=== PATIENT | female | born 1965 | race Caucasian/White ===

== ENCOUNTER 2021-04-25 20:35 | Inpatient (IN) | payer OTHER ==
[~2021-04-25] VITALS: Ht 175.3 cm; Wt 102.1 kg
[2021-04-25] MEDS ORDERED: NITROGLYCERIN OINT 1GM/INCH UDPKT TD ONE (21:15)
[2021-04-26 00:36] LABS: BASOPHILS % 0.9 % (0.0-2.0); EOSINOPHILS % 1.3 % (0.0-5.0); HEMATOCRIT. 40.1 % (36.0-48.0); HEMOGLOBIN. 12.7 g/dL (12.0-16.0); LYMPHOCYTES % 21.8 % (20.0-50.0); MEAN CORPUSCULAR HEMOGLOBIN 26.7 pg (28.0-32.0); MEAN PLATELET VOLUME 8.6 fl (7.4-10.4); MONOCYTES % 7.3 % (2.0-8.0); NEUTROPHILS % 68.7 % (40.0-76.0); PLATELET 354 x1000/uL (130-400); RED BLOOD CELL COUNT 4.77 mill/uL (4.2-5.4); RED CELL DISTRIBUTION WIDTH 14.9 % (11.6-14.6)
[2021-04-26 01:34] LABS: CHLORIDE 108 mEq/L (98-107)
[2021-04-26] MEDS ORDERED: NITROGLYCERIN OINT 1GM/INCH UDPKT TD ONE (02:30)
[2021-04-26] MEDS ORDERED: DEXAMETHASONE 4MG/ML 1ML VIAL IV ONE (02:30)
[2021-04-26] MEDS ORDERED: ENOXAPARIN 80MG/0.8ML SYR SUBCUT ONE (02:45)
[2021-04-26] MEDS ORDERED: FUROSEMIDE 20MG/2ML VIAL IVP ONE (03:45)
[2021-04-26] MEDS ORDERED: IOHEXOL-350 100 ML BOTTLE ONE (03:51)
[2021-04-26 03:56] LABS: *AMPHETAMINES SCREEN URINE PRESUMTIVE POSITIVE (NEGATIVE); *BARBITURATES SCREEN URINE NEGATIVE (NEGATIVE); *BENZODIAZEPINES SCREEN URINE NEGATIVE (NEGATIVE); *COCAINE SCREEN URINE PRESUMTIVE POSITIVE (NEGATIVE); CANNABINOID URINE SCREEN NEGATIVE (NEGATIVE); METHADONE URINE SCREEN NEGATIVE (NEGATIVE); OPIATES URINE SCREEN NEGATIVE (NEGATIVE); PHENCYCLIDINE URINE SCREEN NEGATIVE (NEGATIVE)
[2021-04-26] MEDS: ACETAMINOPHEN 650MG/20.3ML UDC PO PRN ×2 (13:42→13:47)
[2021-04-26] MEDS ORDERED: ACETAMINOPHEN 325MG TABLET PO PRN (14:00)
[2021-04-26 16:00] VITALS: BP 102/73
[2021-04-26] MEDS ORDERED: FUROSEMIDE 40MG/4ML VIAL IVP NR (18:00)
[2021-04-26] MEDS: ENOXAPARIN 40MG/0.4ML SYR SUBCUT SCH (18:37)
[2021-04-26] MEDS ORDERED: INFLUENZA VACCINE 05/PF 0.5 ML SYRINGE IM ONE (19:00)
[2021-04-26] MEDS ORDERED: TRAMADOL 50MG TABLET PO PRN (19:45)
[2021-04-26 20:00] VITALS: BP 130/96
[2021-04-26] MEDS ORDERED: NALOXONE HCL 0.4MG/ML VIAL IV PRN (20:00)
[2021-04-26] MEDS: KETOROLAC 30MG/ML VIAL IV PRN (22:37)
[2021-04-27] VITALS: BP_SYST 100; BP_SYST 130; BP_DIAS 59; BP_DIAS 96
[2021-04-27 04:00] VITALS: BP 112/81
[2021-04-27] MEDS: FUROSEMIDE 40MG/4ML VIAL IVP SCH ×2 (06:49→16:45)
[2021-04-27 08:00] VITALS: BP 119/85
[2021-04-27 12:00] VITALS: BP 118/76
[2021-04-27 16:00] VITALS: BP 117/79
[2021-04-27] MEDS: ENOXAPARIN 40MG/0.4ML SYR SUBCUT SCH (17:02)
[2021-04-27 20:00] VITALS: BP 100/58
[2021-04-28] VITALS: BP 110/78
[2021-04-28 04:00] VITALS: BP 114/73
[2021-04-28] MEDS: FUROSEMIDE 40MG/4ML VIAL IVP SCH ×2 (06:33→17:15)
[2021-04-28 08:00] VITALS: BP 100/66
[2021-04-28 10:01] LABS: CHLORIDE 102 mEq/L (98-107)
[2021-04-28] MEDS ORDERED: POTASSIUM CHLORIDE 20MEQ TABLET SR PO SCH (10:45)
[2021-04-28 12:00] VITALS: BP 100/67
[2021-04-28] MEDS ORDERED: DEXT 5% WATER + KCL 40MEQ/L 1,000 ML IV ONE (12:00)
[2021-04-28] MEDS ORDERED: CARV6.2548 MT (12:02)
[2021-04-28] MEDS ORDERED: LOSA25TA26 MT (12:02)
[2021-04-28] MEDS ORDERED: POTA20TA82 MT (12:02)
[2021-04-28] MEDS ORDERED: FURO-151 MT (12:02)
[2021-04-28] MEDS: POTASSIUM CHLORIDE 20MEQ TABLET SR PO SCH (13:45)
[2021-04-28] MEDS: KCL 20MEQ/100ML PREMIX 100 ML IV SCH (15:28)
[2021-04-28 16:00] VITALS: BP 100/55
[2021-04-28] MEDS: ENOXAPARIN 40MG/0.4ML SYR SUBCUT SCH (18:38)
[2021-04-28 20:00] VITALS: BP 103/73
[2021-04-28] MEDS: CARVEDILOL 3.125 MG TABLET PO SCH (20:30)
[2021-04-28] MEDS: KETOROLAC 30MG/ML VIAL IV PRN (21:40)
[2021-04-28] MEDS ORDERED: MAGNESIUM 2 G PREMIX 50 ML IV NR (23:00)
[2021-04-29] VITALS: BP 111/81
[2021-04-29 04:00] VITALS: BP 117/92
[2021-04-29] MEDS: FUROSEMIDE 40MG/4ML VIAL IVP SCH (06:03)
[2021-04-29] MEDS: KCL 20MEQ/100ML PREMIX 100 ML IV SCH (06:03)
[2021-04-29] MEDS: ONDANSETRON HCL 4MG/2ML INJ IV PRN ×2 (06:03→11:10)
[2021-04-29 08:00] VITALS: BP 123/92
[2021-04-29] MEDS: CARVEDILOL 3.125 MG TABLET PO SCH (09:00)
[2021-04-29] MEDS: POTASSIUM CHLORIDE 20MEQ TABLET SR PO SCH (09:00)
[2021-04-29 12:00] VITALS: BP 110/78
[2021-04-29] MEDS ORDERED: POTASSIUM CHLORIDE 20MEQ TABLET SR PO NR (14:30)
[2021-04-29] MEDS: KETOROLAC 30MG/ML VIAL IV PRN (14:55)
[2021-04-29 15:12] VITALS: BP 110/78
== END 2021-04-29 16:40 | disposition home or self-care (01) | DRG 291 ==
LOC: ER 20:35 → 8WST 04-26 02:33 → EDBEDREQ 04-26 02:49 → EDBEDREQTM 04-26 02:49
PROVIDERS: ADMIT Internal Medicine; ATTEND Internal Medicine
DX: I50.23 Acute on chronic systolic (congestive) heart failure (principal); R65.11 Systemic inflammatory response syndrome (SIRS) of non-infectious origin with acute organ dysfunction; E44.0 Moderate protein-calorie malnutrition; I42.9 Cardiomyopathy, unspecified; F15.90 Other stimulant use, unspecified, uncomplicated; F14.10 Cocaine abuse, uncomplicated; Z20.822 Contact with and (suspected) exposure to COVID-19; I08.1 Rheumatic disorders of both mitral and tricuspid valves; E87.8 Other disorders of electrolyte and fluid balance, not elsewhere classified; Z82.49 Family history of ischemic heart disease and other diseases of the circulatory system; Z87.442 Personal history of urinary calculi; Z68.33 Body mass index [BMI] 33.0-33.9, adult; Z71.51 Drug abuse counseling and surveillance of drug abuser; Z98.84 Bariatric surgery status; I27.20 Pulmonary hypertension, unspecified
CPT/HCPCS: 36415; 71045; 71275; 80048; 80053; 80305; 83735; 83880; 84132; 84443; 84484; 85025; 85379; 87426; 90686; 93005; 93306; 93970; 99291; C1893; C9803; J1100; J1650; J1885; J1940; J2405; J3475; J3480; J7040; J7060; Q9967; U0003; U0005

== ENCOUNTER 2024-10-26 20:52 | Inpatient (IN) | payer OTHER, MEDICAID ==
[~2024-10-26] VITALS: Ht 175.3 cm; Wt 90.7 kg
[~2024-10-26 20:52] MED LIST: CARV6.2548 MT; FURO-151 MT; LOSA25TA26 MT; POTA-205 MT
[2024-10-26 22:58] LABS: BASOPHILS % 0.2 % (0.0-2.0); EOSINOPHILS % 5.4 % (0.0-5.0); HEMATOCRIT. 39.2 % (36.0-48.0); HEMOGLOBIN. 12.7 g/dL (12.0-16.0); LYMPHOCYTES % 13.5 % (20.0-50.0); MEAN PLATELET VOLUME 8.1 fl (7.4-10.4); MONOCYTES % 4.5 % (2.0-8.0); NEUTROPHILS % 76.4 % (40.0-76.0); PLATELET 254 x1000/uL (130-400); RED BLOOD CELL COUNT 4.59 mill/uL (4.2-5.4); RED CELL DISTRIBUTION WIDTH 15.8 % (11.6-14.6)
[2024-10-26 23:09] LABS: INR 1.0
[2024-10-26 23:14] LABS: CREATININE 1.0 mg/dL (0.6-1.0); UREA NITROGEN BLOOD 20 mg/dL (9-23)
[2024-10-26 23:16] LABS: TROPONIN I HIGH SENSITIVITY < 4 ng/L (3.0-34)
[2024-10-27] MEDS ORDERED: GUAIFENESIN 200MG/10ML SUGAR FREE UDC PO PRN
[2024-10-27] MEDS ORDERED: IBUPROFEN 600MG TABLET PO PRN
[2024-10-27] MEDS ORDERED: CLONIDINE 0.1MG TABLET PO PRN
[2024-10-27] MEDS ORDERED: ACETAMINOPHEN 325MG TABLET PO PRN
[2024-10-27] MEDS ORDERED: MAGNESIUM/ALUMINUM HYDROXIDE/SIMETHICONE 30ML UDC PO PRN
[2024-10-27] MEDS ORDERED: ONDANSETRON HCL 4MG/2ML INJ IV PRN
[2024-10-27] MEDS ORDERED: DOCUSATE SODIUM 100MG CAPSULE PO PRN
[2024-10-27] MEDS ORDERED: IPRATROPIUM/ALBUTEROL 0.5-3(2.5)MG/3ML NEB HHN PRN
[2024-10-27 01:47] VITALS: BP 103/69; PULSE 62; RESP 18; TEMP 36.4
[2024-10-27] MEDS: AMOXICILLIN 500MG CAPSULE PO SCH (06:34)
[2024-10-27 08:00] VITALS: BP 126/85; PULSE 66; RESP 17; TEMP 36.6; O2SAT 98
[2024-10-27] MEDS: ACETAMINOPHEN 325MG TABLET PO PRN (08:16)
[2024-10-27] MEDS: CARVEDILOL 6.25 MG TABLET PO SCH (08:17)
[2024-10-27] MEDS: LOSARTAN 25 MG TABLET PO SCH (08:17)
[2024-10-27] MEDS: ENOXAPARIN 30MG/0.3ML SYR SUBCUT SCH (08:18)
[2024-10-27] MEDS: PANTOPRAZOLE 40MG DR TABLET PO SCH (08:20)
[2024-10-27 09:15] LABS: CREATININE 0.9 mg/dL (0.6-1.0); TRIGLYCERIDE 117 mg/dL (0-150); UREA NITROGEN BLOOD 14 mg/dL (9-23)
[2024-10-27 09:16] LABS: BASOPHILS % 0.7 % (0.0-2.0); EOSINOPHILS % 8.3 % (0.0-5.0); HEMATOCRIT. 36.7 % (36.0-48.0); HEMOGLOBIN. 12.0 g/dL (12.0-16.0); LDL CHOLESTEROL 111 mg/dL (5-100); LYMPHOCYTES % 26.5 % (20.0-50.0); MEAN PLATELET VOLUME 8.4 fl (7.4-10.4); MONOCYTES % 6.0 % (2.0-8.0); NEUTROPHILS % 58.5 % (40.0-76.0); PLATELET 236 x1000/uL (130-400); RED BLOOD CELL COUNT 4.32 mill/uL (4.2-5.4); RED CELL DISTRIBUTION WIDTH 15.5 % (11.6-14.6)
[2024-10-27 09:19] LABS: T4 FREE 1.04 ng/dL (0.89-1.76)
[2024-10-27 12:00] VITALS: BP 139/76; PULSE 91; RESP 16; TEMP 36.5; O2SAT 97
[2024-10-27 16:00] VITALS: BP 124/66; PULSE 67; RESP 17; TEMP 36.4; O2SAT 98
[2024-10-27 20:00] VITALS: BP 97/58; PULSE 87; RESP 19; TEMP 37; O2SAT 100
[2024-10-27] MEDS: ATORVASTATIN CALCIUM 10MG TABLET PO SCH (22:02)
[2024-10-28] VITALS: BP 103/82; PULSE 73; RESP 17; TEMP 36.7; O2SAT 99
[2024-10-28 04:00] VITALS: BP 135/82; PULSE 73; RESP 18; TEMP 36.7; O2SAT 98
[2024-10-28 06:03] VITALS: BP 135/82; PULSE 73; RESP 18; TEMP 36.7; O2SAT 98
[2024-10-28 07:15] LABS: BASOPHILS % 0.8 % (0.0-2.0); EOSINOPHILS % 7.9 % (0.0-5.0); HEMATOCRIT. 39.3 % (36.0-48.0); HEMOGLOBIN. 12.8 g/dL (12.0-16.0); LYMPHOCYTES % 25.4 % (20.0-50.0); MEAN PLATELET VOLUME 8.3 fl (7.4-10.4); MONOCYTES % 6.9 % (2.0-8.0); NEUTROPHILS % 59.0 % (40.0-76.0); PLATELET 220 x1000/uL (130-400); RED BLOOD CELL COUNT 4.63 mill/uL (4.2-5.4); RED CELL DISTRIBUTION WIDTH 15.5 % (11.6-14.6)
[2024-10-28 07:17] LABS: CREATININE 0.9 mg/dL (0.6-1.0); UREA NITROGEN BLOOD 12 mg/dL (9-23)
[2024-10-28 07:18] LABS: TROPONIN I HIGH SENSITIVITY < 4 ng/L (3.0-34)
[2024-10-28 08:00] VITALS: BP 127/85; PULSE 70; RESP 18; TEMP 36.6; O2SAT 97
[2024-10-28] MEDS ORDERED: ATOR10TA69 PO (09:32)
[2024-10-28] MEDS ORDERED: CARV12.545 PO (09:33)
[2024-10-28 10:14] VITALS: BP 127/85; PULSE 70; TEMP 97.8; O2SAT 100
== END 2024-10-28 11:00 | disposition home or self-care (01) | DRG 392 ==
LOC: ER 20:52 → EDBEDREQ 22:08 → 6WST 23:25 → EDBEDREQ 23:26 → ENRESERV 23:47
PROVIDERS: ADMIT Internal Medicine; ATTEND Internal Medicine
DX: K29.70 Gastritis, unspecified, without bleeding (principal); I50.22 Chronic systolic (congestive) heart failure; E78.5 Hyperlipidemia, unspecified; R07.89 Other chest pain; I11.0 Hypertensive heart disease with heart failure; I25.2 Old myocardial infarction; Z79.899 Other long term (current) drug therapy; Z87.442 Personal history of urinary calculi; Z88.0 Allergy status to penicillin; Z90.49 Acquired absence of other specified parts of digestive tract
CPT/HCPCS: 36415; 71045; 80048; 80061; 83880; 84439; 84443; 84484; 85025; 93005; 93306; 99291; A4606; J1650